=== PATIENT | female | born 2000 | race Hispanic/Latino ===

== ENCOUNTER 2019-12-25 22:41 | Emergency (ER) | payer BC, OTHER, SELFPAY ==
[2019-12-25] MEDS ORDERED: Ibuprofen 800 MG TAB ONE (23:15)
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
== END 2019-12-26 00:09 | disposition home or self-care (01) ==
LOC: ERS 22:41
DX: S43.402A Unspecified sprain of left shoulder joint, initial encounter (principal); S60.221A Contusion of right hand, initial encounter; V43.52XA Car driver injured in collision with other type car in traffic accident, initial encounter

== ENCOUNTER 2023-04-23 19:17 | Emergency (ER) | payer BC ==
[2023-04-23] MEDS ORDERED: Ketorolac Tromethamine 30 MG (1 mL) VIAL ONE (20:09)
== END 2023-04-23 21:06 | disposition home or self-care (01) ==
LOC: ERS 19:17
DX: R10.9 Unspecified abdominal pain (principal); V89.2XXA Person injured in unspecified motor-vehicle accident, traffic, initial encounter; W22.11XA Striking against or struck by driver side automobile airbag, initial encounter
CPT/HCPCS: 96372; J1885